=== PATIENT | female | born 1975 | race Native Hawaiian/Other Pacific Islander ===

== ENCOUNTER 2023-03-13 18:16 | Outpatient (CLI) | payer MEDICAID, SELFPAY | END 2023-03-13 18:17 | disposition home or self-care (01) | LOC: NFLDREF 03-15 07:39 | PROVIDERS: Visit Provider Nurse Practitioner Family | DX: R30.0 Dysuria (principal); N30.90 Cystitis, unspecified without hematuria | CPT/HCPCS: 87086 ==